=== PATIENT | female | born 1990 | race African-American/Black ===

== ENCOUNTER 2024-05-26 09:46 | Emergency (ER) | payer OTHER, SELFPAY ==
--- NOTE | ~2024-05-26 | XR_ITS ---
XR foot LT min 3V Ordering provider: Erika Esparza NP History: . pain plantar aspect 1st MTP, NKI . Comparison: None. FINDINGS: BONES: No acute fracture or dislocation. JOINT SPACES: Narrowing of the proximal interphalangeal joint. No tarsal coalition. SOFT TISSUES: Normal. IMPRESSION: No acute osseous abnormality left foot. Reviewed, dictated and finalized at location A.
[2024-05-26 09:55] VITALS: BP 113/69; PULSE 69; RESP 16; TEMP 36.7; O2SAT 100
--- NOTE | 2024-05-26 10:37 | ED.LOWEXIN ---
HPI - Extremity Injury (Lower) General Chief Complaint: Extremity Injury, Lower Stated Complaint: Toe Pain Time Seen by Provider: 05/26/24 10:37 Source: patient Mode of arrival: ambulatory Limitations: no limitations History of Present Illness HPI Narrative: 33-year-old female presents with complaint of pain to left foot for 2-3 days. Denies injury. Patient works at [employer], is on her feet for long period time. Reports pain to 1st MTP and 1st great toe. No swelling, erythema or warmth. Distal neurovascularly intact. All systems reviewed and negative except as noted above. Related Data Allergies Allergy/AdvReac Type Severity Reaction Status Date / Time No Known Allergies Allergy Verified 05/26/24 10:29 Review of Systems Review of Systems: CONSTITUTIONAL: Denies fever, chills, or sweats. EYES: Denies visual changes, redness, or discharge. ENT: Denies rhinorrhea, congestion, sore throat, or otalgia. CARDIOVASCULAR: Denies chest pain, palpitations, or edema. RESPIRATORY: Denies cough or dyspnea. GASTROINTESTINAL: Denies abdominal pain, nausea, vomiting, or diarrhea. GENITOURINARY: Denies dysuria or hematuria. SKIN: Denies rash or itching. MUSCULOSKELETAL: Reports pain to left foot. NEUROLOGIC: Denies headache, numbness, or weakness. PSYCHIATRIC: Denies anxiety or depression. All other systems reviewed are negative, except as documented in HPI. PMFSH Comments At time of signature, agree with nursing past medical, surgical, social and family history. There is no relevant family history pertinent to the presenting complaint. Exam Narrative: GENERAL: This is a well-nourished, well-developed patient, in no apparent distress. HEAD: normocephalic, atraumatic. EYES: PERRL. Sclera clear/white. Vision is grossly intact. EARS: External ears normal NOSE: External nose normal NECK: Neck supple, non-tender without lymphadenopathy, masses or thyromegaly. CARDIOVASCULAR: Regular rate and rhythm without murmurs, gallops, or rubs. RESPIRATORY: Clear to auscultation. Breath sounds equal bilaterally. No wheezes, rales, or rhonchi. SKIN: warm, Dry, intact with no suspicious lesions or rash, good texture and turgor. NEURO: awake, alert, and oriented to person, place and time. There were no obvious focal neurologic abnormalities. EXTREMITIES: No significant tenderness to 1st left MTP or left great toe. No erythema, warmth or swelling noted. No deformity. Course Course Level of Care: Express Care Visit Vital Signs Vital signs: Vital Signs Temperature 36.7 C 05/26/24 09:55 Pulse Rate 69 05/26/24 09:55 Respiratory Rate 16 05/26/24 09:55 Blood Pressure 113/69 05/26/24 09:55 Pulse Oximetry 100 05/26/24 09:55 Oxygen Delivery Room Air 05/26/24 09:55 Temperature 36.7 C 05/26/24 09:55 Pulse Rate 69 05/26/24 09:55 Respiratory Rate 16 05/26/24 09:55 Blood Pressure 113/69 05/26/24 09:55 Pulse Oximetry 100 05/26/24 09:55 Oxygen Delivery Room Air 05/26/24 09:55 Reviewed MDM - Extremity Injury (Lower) MDM Narrative Medical decision making narrative: Patient is aware of diagnosis, understands and agrees to treatment plan. Anticipatory guidance given. Patient agrees to follow-up as directed and is aware of reasons to seek care at the emergency department. Portions of this record may have been created with voice recognition software Imaging Data My impression: agree with radiologist Radiologist's impression: XR foot LT min 3V Ordering provider: Erika Esparza NP History: . pain plantar aspect 1st MTP, NKI . Comparison: None. FINDINGS: BONES: No acute fracture or dislocation. JOINT SPACES: Narrowing of the proximal interphalangeal joint. No tarsal coalition. SOFT TISSUES: Normal. IMPRESSION: No acute osseous abnormality left foot. Discharge Plan Discharge Clinical Impression: Acute pain of left foot Patient Disposition: [facility]
== END 2024-05-26 11:20 | disposition home or self-care (01) ==
PROVIDERS: Emergency Provider Nurse Practitioner Family; PCP Nurse Practitioner Family
DX: M79.672 Pain in left foot (principal)
CPT/HCPCS: 73630; 99213; G0463

== ENCOUNTER 2024-10-06 08:28 | Emergency (ER) | payer OTHER, SELFPAY ==
--- NOTE | ~2024-10-06 | XR_ITS ---
HISTORY: FALL, LAT HIP PAIN/BRUISING COMPARISON: None TECHNIQUE: 2 views of the left hip FINDINGS: No acute fracture or dislocation is identified. Superior lateral sclerosis of the femoral acetabular joint space is present consistent with osteoarth ritis. Specimen Fecal stasis within the colon. Air within the rectum. Normal mineralization. IMPRESSION: Degenerative disease without acute fracture or dislocation Reviewed, dictated and finalized at location A. OMY PROFESSOR
--- NOTE | ~2024-10-06 | XR_ITS ---
HISTORY: FALL, ANT PAIN COMPARISON: None TECHNIQUE: 4 views of the right knee were performed FINDINGS: No acute or subacute fracture, erosion, lytic or sclerotic lesion. Medial tibiofemoral joint space narrowing is identified. Small suprapatellar joint effusion is identified. The infrapatellar joint space is clear. IMPRESSION: Degenerative disease and a small suprapatellar joint effusion without acute fracture. Reviewed, dictated and finalized at location A. D CARE TECHNICIAN IMPRESSION: Degenerative disease and a small suprapatellar joint effusion with out acute fracture.
[2024-10-06 08:38] VITALS: BP 122/71; PULSE 68; RESP 16; TEMP 36.3; O2SAT 100
--- OUTSIDE RECORDS SUMMARY | 2024-10-06 08:45 | XMS_ITS | Data Portability ---
Author Organization [facility] Address [address] [place] [address] Care Team Providers Care Computer Education Teacher Name Role Phone ELI, BENITA Primary Care Provider [phone] Assessment Encounter Date Assessment Date Assessment LastModified by Organization Details LastModified Time 08/20/2023 08/20/2023 Ms. Mathews presented in office today complaining of migraine headache everyday x 2 weeks. Patient claims she has tried several migraine medications and none of them have helped. Not available 08/20/2023 15:36:15 12/02/2023 12/02/2023 Ms. Mathews came into the office today complaining of coughing, chest congestion, sore throat, runny nose, bodily aches, and right side sciatic back discomfort for three days. Not available 12/02/2023 12:41:23 Plan of Treatment Reminders Order Date Submit Date Provider Last Modified By Organization Details Last Modified Time Details Appointments None recorded. Lab urinalysi s, dipstick 2023 024 [email or web address] In-Office Order, Internal Use Only DO Not Attach Compendium DO Not Attach Compendium, Do Not Delete/merge, [id number] 4 15:16:40 culture, urine 2023 024 [facility], [address], [address], [place], [address], 4 15:08:54 vaginal pathogens panel, PABLO+probe , vaginal fluid 2023 024 [facility], [address] [facility], [facility], [place], [address], 4 06:19:19 vaginal pathogens panel, PABLO+probe , vaginal fluid 2023 024 [facility], [address], [address], [place], [address], 4 08:25:53 chlamydia trachomat is + neisseria gonorrhoe ae rRNA panel, PABLO+probe , nasophary nx 2023 024 [facility], [address], [address], [place], [address], 4 07:14:57 HIV 1 + 2, meaningfu l use set 2023 024 [facility], [address], [address], [place], [address], 4 07:14:17 HBsAg (hepatiti s B surface Ag), EIA, serum 2023 024 [facility], [address], [address], [place], [address], 4 07:14:15 RPR (rapid plasma reagin), serum 2023 024 [facility], [address], [address], [place], [address], 4 07:14:16 Hepatitis C IgG Ab, qual, serum 2023 024 [facility], [address], [address], [place], [address], 4 07:14:13 chlamydia trachomat is + neisseria gonorrhoe ae + trichomon as vaginalis DNA panel, PABLO+probe , unspecifi ed specimen 2023 024 [facility], [address], [address], [place], [address], 4 07:14:14 rapid strep group A, throat 2023 In-Office Order, Internal Use Only DO Not Attach Compendium DO Not Attach Compendium, Do Not Delete/merge, [id number] 4 11:31:05 rapid SARS CoV 2 Ag, QL IA, respirato ry specimen 2023 [facility] In-Office Order, Internal Use Only DO Not Attach Compendium DO Not Attach Compendium, Do Not Delete/merge, [id number] 4 11:41:53 rapid flu (A+B) 2023 024 [facility] In-Office Order, Internal Use Only DO Not Attach Compendium DO Not Attach Compendium, Do Not Delete/merge, [id number] 4 11:41:[address] referral 2023 buffy Burton MD, [address], [address], 4 10:27:26 Procedures None recorded. Surgeries None recorded. Imaging None recorded. Medication Orders Macrobid 100 mg capsule 2023 [facility]75304, [address], [place], [place], [id number], 4 15:16:45 Pyridium 100 mg tablet 2023 [facility] #90858, [address], [place], [place], [id number], 4 15:17:35 albuterol sulfate HFA 90 mcg/actua tion aerosol inhaler 2023 024 [facility] #77739, [address], [place], [place], [id number], 4 11:34:18 Medrol (Eloy) 4 mg tablets in a dose pack 2023 024 [facility] #96928, [address] [place], [place], [id number], 4 17:00:34 cyclobenz aprine 10 mg tablet 2023 024 [facility] #01581, [address] [place] [address], [place], [id number], 4 17:00:38 ibuprofen 600 mg tablet 2023 024 [facility] #42078, [address] [place] [address], [place], [id number], 4 17:00:36 benzonata te 100 mg capsule 2023 024 [facility] #00012, [address] [place] [address], [place], [id number], 4 17:00:40 Ubrelvy 50 mg tablet 2023 [email or web address], [address] [place] [address], [place], [id number], 4 11:44:00 Patient TargetsNo targets recorded. Patient Instructions Encounter Date Encounter Id Patient Instructions Last Modified By Organization Details Last Modified Time 08/20/2023 [id number] - Always present to ER or Urgent Care with any progression of/alarming symptoms, significant changes in symptoms or any concerning or urgent matters Not available 08/20/2023 15:33:18 12/02/2023 [id number] - Always present to ER or Urgent Care with any progression of/alarming symptoms, significant changes in symptoms or any concerning or urgent matters Not available 12/02/2023 11:31:19 02/09/2024 [id number] safer sex: care instructions [email or web address] Not available 02/09/2024 15:57:32 Plan of care has been discussed with patient including expected therapeutic benefits and potential side effects of prescribed medication and treatments. Patient verbalizes understanding and is in agreement with the plan of care. Patient was instructed to keep all scheduled appointments and contact the clinic for any additional problems. [email or web address] Not available 03/14/2024 16:22:25 03/09/2024 [id number] Urinary Tract Infection (UTI) in Women: Care Instructions [email or web address] Not available 03/09/2024 15:19:16 Plan of care has been discussed with patient including expected therapeutic benefits and potential side effects of prescribed medication and treatments. Patient verbalizes understanding and is in agreement with the plan of care. Patient was instructed to keep all scheduled appointments and contact the clinic for any additional problems. Not available 03/16/2024 06:34:43 Reason for Referral Neurologist Referral for Will coon Referring Physician: Benita Benitez, Family Medicine, Encounter Date: 08/20/2023 Results Created Date Observation Date Name Description Value Unit Range Abnormal Flag Note LastModifiedBy Organization Detail LastModifiedTime 12/02/19 24 12/02/2023 rapid SARS CoV 2 Ag, QL IA, respi rator y speci men rapid SARS CoV 2 Ag, QL IA, respiratory specimen negati ve Not Available In-Office Order Internal Use Only DO Not Attach Compendium DO Not Attach Compendium, Do Not Delete/merge, [id number] 12/02/2023 11:10:26 12/02/19 24 12/02/2023 rapid flu (A+B) Flu A negati ve Not Available In-Office Order Internal Use Only DO Not Attach Compendium DO Not Attach Compendium, Do Not Delete/merge, [id number] 12/02/2023 11:10:27 12/02/19 24 12/02/2023 rapid flu (A+B) Flu B negati ve Not Available In-Office Order Internal Use Only DO Not Attach Compendium DO Not Attach Compendium, Do Not Delete/merge, [id number] 12/02/2023 11:10:27 12/02/19 24 12/02/2023 rapid strep group A, throa t Strep negati ve Not Available In-Office Order Internal Use Only DO Not Attach Compendium DO Not Attach Compendium, Do Not Delete/merge, [id number] 12/02/2023 11:10:04 12/24/19 24 12/25/2023 HCV ANTIB DANNY hep C virus Ab NON REACTI VE nonrea ctive HCV antib danny alone does not diffe renti ate betwe en previ ously resol estrellita infec tion and activ e infec tion. Equiv ocal and React mary HCV antib danny resul ts shoul d be follo wed up with an HCV RNA test to suppo rt the diagn osis of activ e HCV infec tion. Not Available [facility] ([facility]) [address] [place], [address], 12/26/2023 07:14:13 12/24/19 24 12/26/2023 CT, NG, TRICH VAG BY PABLO chlamydia by PABLO NEGATI VE negati ve Not Available [facility] ([facility]) [address] [place], [address], 12/26/2023 07:14:14 12/24/19 24 12/26/2023 CT, NG, TRICH VAG BY PABLO gonococcus by PABLO NEGATI VE negati ve Not Available [facility] ([facility]) [address] [place], [address], 12/26/2023 07:14:14 12/24/19 24 12/26/2023 CT, NG, TRICH VAG BY PABLO trich vag by PABLO NEGATI VE negati ve Not Available [facility] ([facility]) [address] [place], [address], 12/26/2023 07:14:14 12/24/1912/25/2023 HBSAG SCREE N HBsAg screen NEGATI VE negati ve Not Available [facility] ([facility]) [address] [place], [address], 12/26/2023 07:14:15 12/24/19 24 12/25/2023 RPR, RFX QN RPR/C ONFIR M TP RPR NON REACTI VE nonrea ctive Not Available [facility] ([facility]) [address] [place], [address], 12/26/2023 07:14:16 12/24/19 24 12/25/2023 HIV AB/P2 4 AG WITH REFLE X HIV Ab/P24 Ag screen NON REACTI VE nonrea ctive HIV Negat mary HIV-1 /HIV- 2 antib odies and HIV-1 p24 antig en were NOT detec carroll. There is no labor atory evide nce of HIV infec tion. Not Available [facility] ([facility]) [address] [facility], [place], [address], 12/26/2023 07:14:17 02/09/20 24 02/11/2024 CT/GC PABLO, PHARY NGEAL C. trachomatis, PABLO, pharyn NEGATI VE negati ve Not Available [facility] ([facility]) [address] [place], [address], 02/11/2024 07:14:57 02/09/20 24 02/11/2024 CT/GC PABLO, PHARY NGEAL N. gonorrhoeae, PABLO, pharyn NEGATI VE negati ve Not Available [facility] ([facility]) [address] [place], [address], 02/11/2024 07:14:57 02/09/20 24 02/10/2024 NUSWA B VAGIN ITIS PLUS (VG+) atopobium vaginae HIGH - 2 score abnormal Not Available [facility] ([facility]) [address] [place], [address], 02/11/2024 08:25:52 02/09/20 24 02/10/2024 NUSWA B VAGIN ITIS PLUS (VG+) bvab 2 HIGH - 2 score abnormal Not Available [facility] ([facility]) [address] [place], [address], 02/11/2024 08:25:52 02/09/20 24 02/10/2024 NUSWA B VAGIN ITIS PLUS (VG+) megasphaera 1 HIGH - 2 score abnormal Calcu late total score by ken almonte the 3 indiv idual bacte rial vagin osis (BV) marke r score s toget her. Total score is inter prete d as follo ws: Total score 0-1: Indic ates the absen ce of BV. Total score 2: Indet ermin ate for BV. Addit ional clini angelia data shoul d be evalu ated to estab pj a diagn osis. Total score 3-6: Indic ates the prese nce of BV. Not Available [facility] ([facility]) [address] [place], [address], 02/11/2024 08:25:52 02/09/20 24 02/10/2024 NUSWA B VAGIN ITIS PLUS (VG+) monae albicans, PABLO NEGATI VE negati ve Not Available [facility] ([facility]) [address] [place], [address], 02/11/2024 08:25:52 02/09/20 24 02/10/2024 NUSWA B VAGIN ITIS PLUS (VG+) monae glabrata, PABLO NEGATI VE negati ve Not Available [facility] ([facility]) [address] [place], [address], 02/11/2024 08:25:52 02/09/20 24 02/11/2024 NUSWA B VAGIN ITIS PLUS (VG+) trich vag by PABLO NEGATI VE negati ve Not Available [facility] ([facility]) [address] [place], [address], 02/11/2024 08:25:52 02/09/20 24 02/11/2024 NUSWA B VAGIN ITIS PLUS (VG+) chlamydia trachomatis, PABLO NEGATI VE negati ve Not Available [facility] ([facility]) [address] [facility], [place], [address], 02/11/2024 08:25:52 02/09/20 24 02/11/2024 NUSWA B VAGIN ITIS PLUS (VG+) neisseria gonorrhoeae, PABLO NEGATI VE negati ve Not Available [facility] ([facility]) [address] [facility], [place], [address], 02/11/2024 08:25:52 03/09/20 24 03/13/2024 URINE CULTU RE, ROUTI NE urine culture, routine FINAL REPORT abnormal Not Available [facility] ([facility]) [address] [facility], [place], [address], 03/13/2024 15:08:54 03/09/20 24 03/13/2024 URINE CULTU RE, ROUTI NE result 1 ESCHER ICHIA COLI abnormal Cefaz maureen <=4 ug/mL Cefaz maureen with an VON <=16 predi cts susce ptibi lity to the oral agent s cefac sujey, cefdi kush, cefpo doxim e, cefpr ozil, cefur oxime , cepha lexin , and lorac arbef when used for thera py of uncom plica carroll urina ry tract infec tions due to E. coli, Klebs iella pneum oniae , and Prote us mirab ilis. Great er than 100,0 00 colon y formi ng units per mL Not Available [facility] ([facility]) [address] [facility], [place], [address], 03/13/2024 15:08:54 03/09/20 24 03/13/2024 URINE CULTU RE, ROUTI NE antimicrobia l susceptibili ty COMMEN T S = Susce ptibl e; I = Inter media te; R = Resis tant P = Posit mary; N = Negat mary MICS are expre ssed in micro grams per mL Antib iotic RSLT# 1 RSLT# 2 RSLT# 3 RSLT# 4 Amoxi cilli n/Cla vulan ic Acid S Ampic illin S Cefep precious S Ceftr iaxon e S Cefur oxime S Cipro floxa mirna S Ertap enem S Genta micin S Imipe nem S Levof loxac in S Merop enem S Nitro furan toin S Piper acill in/Ta zobac patel S Tetra cycli ne S Tobra mycin S Trime thopr im/Hwang lfa R Not Available [facility] ([facility]) [address], [place], [address], 03/13/2024 15:08:54 03/09/20 24 03/09/2024 urina lysis , dipst ick Leukocytes Modera te Not Available In-Office Order Internal Use Only DO Not Attach Compendium DO Not Attach Compendium, Do Not Delete/merge, 03/09/2024 14:53:01 03/09/20 24 03/09/2024 urina lysis , dipst ick Nitrite positi ve Not Available In-Office Order Internal Use Only DO Not Attach Compendium DO Not Attach Compendium, Do Not Delete/merge, 03/09/2024 14:53:01 03/09/20 24 03/09/2024 urina lysis , dipst ick Urobilinogen 1 Not Available In-Of fice Order Internal Use Only DO Not Attach Compendium DO Not Attach Compendium, Do Not Delete/merge, 03/09/2024 14:53:01 03/09/20 24 03/09/2024 urina lysis , dipst ick Protein 100 Not Available In-Office Order Internal Use Only DO Not Attach Compendium DO Not Attach Compendium, Do Not Delete/merge, 03/09/2024 14:53:01 03/09/20 24 03/09/2024 urina lysis , dipst ick pH 7.0 Not Available In-Office Order Internal Use Only DO Not Attach Compendium DO Not Attach Compendium, Do Not Delete/merge, 03/09/2024 14:53:01 03/09/20 24 03/09/2024 urina lysis , dipst ick Blood Modera te Not Available In-Office Order Internal Use Only DO Not Attach Compendium DO Not Attach Compendium, Do Not Delete/merge, 03/09/2024 14:53:01 03/09/20 24 03/09/2024 urina lysis , dipst ick Specific [place] 1.015 Not Available In-Off ice Order Internal Use Only DO Not Attach Compendium DO Not Attach Compendium, Do Not Delete/merge, 03/09/2024 14:53:01 03/09/20 24 03/09/2024 urina lysis , dipst ick Ketone Trace Not Available In-Office Order Internal Use Only DO Not Attach Compendium DO Not Attach Compendium, Do Not Delete/merge, 03/09/2024 14:53:01 03/09/20 24 03/09/2024 urina lysis , dipst ick Bilirubin Negati ve Not Available In-Office Order Internal Use Only DO Not Attach Compendium DO Not Attach Compendium, Do Not Delete/merge, 03/09/2024 14:53:01 03/09/20 24 03/09/2024 urina lysis , dipst ick Glucose Negati ve Not Available In-Office Order Internal Use Only DO Not Attach Compendium DO Not Attach Compendium, Do Not Delete/merge, 03/09/2024 14:53:01 03/09/20 24 03/09/2024 urina lysis , dipst ick Appearance Cloudy Not Available In-Offi ce Order Internal Use Only DO Not Attach Compendium DO Not Attach Compendium, Do Not Delete/merge, 03/09/2024 14:53:01 03/09/20 24 03/09/2024 urina lysis , dipst ick Color Dark Yellow Not Available In-Office Order Internal Use Only DO Not Attach Compendium DO Not Attach Compendium, Do Not Delete/merge, 03/09/2024 14:53:01 03/10/20 24 03/11/2024 NUSWA B VAGIN ITIS PLUS (VG+) atopobium vaginae HIGH - 2 score abnormal Not Available [facility] ([facility]) [address] [facility], [place], [address], 03/12/2024 06:19:19 03/10/20 24 03/11/2024 NUSWA B VAGIN ITIS PLUS (VG+) bvab 2 HIGH - 2 score abnormal Not Available [facility] ([facility]) [address] [facility], [place], [address], 03/12/2024 06:19:19 03/10/20 24 03/11/2024 NUA B VAGIN ITIS PLUS (VG+) megasphaera 1 LOW - 0 score Calcu late total score by addin g the 3 indiv idual bacte rial vagin osis (BV) marke r score s toget her. Total score is inter prete d as follo ws: Total score 0-1: Indic ates the absen ce of BV. Total score 2: Indet ermin ate for BV. Addit ional clini angelia data shoul d be evalu ated to estab pj a diagn osis. Total score 3-6: Indic ates the prese nce of BV. Not Available [facility] ([facility]) [address] [facility], [place], [address], 03/12/2024 06:19:19 03/10/20 24 03/11/2024 NUA B VAGIN ITIS PLUS (VG+) monae albicans, PABLO NEGATI VE negati ve Not Available [facility] ([facility]) [address] [place], [address], 03/12/2024 06:19:19 03/10/20 24 03/11/2024 NUA B VAGIN ITIS PLUS (VG+) monae glabrata, PABLO NEGATI VE negati ve Not Available [facility] ([facility]) [address] [place], [address], 03/12/2024 06:19:19 03/10/20 24 03/12/2024 NUA B VAGIN ITIS PLUS (VG+) trich vag by PABLO NEGATI VE negati ve Not Available [facility] ([facility]) [address] [place], [address], 03/12/2024 06:19:19 03/10/20 24 03/12/2024 NUSWA B VAGIN ITIS PLUS (VG+) chlamydia trachomatis, PABLO NEGATI VE negati ve Not Available [facility] ([facility]) [address] [facility], [place], [address], 03/12/2024 06:19:19 03/10/20 24 03/12/2024 NUSWA B VAGIN ITIS PLUS (VG+) neisseria gonorrhoeae, PABLO NEGATI VE negati ve Not Available [facility] ([facility]) [address] [facility], [place], [address], 03/12/2024 06:19:19 05/26/20 24 05/26/2024 XR, foot No observ ation record ed. [email or web address] [address], [place], [address], 06/03/2024 16:25:06 Result Notes None recorded. Problems Name Problem SNOMED Code Status Onset Date Resolution Date Notes Provider Name and Address Organization Details Recorded Time Abdominal pain 74114167 Active 2021 BENITA BENITEZ NP Attn: Margarita almonte,[address] [facility], [place], [address], [place] [facility] 2 14:21:05 Migraine with aura 8464190 Active 2021 BENITA BENITEZ NP Attn: Margarita almonte,[address] [facility], [place], [address], [place] [facility] 4 15:31:17 Asthma 185067773 Active BENITA BENITEZ NP Attn: Margarita almonte,[address] [facility], [place], [address], [place] [facility] 4 15:31:17 Anemia 833072615 Active Isatu Burgos [place] null, [place] [facility] 1 11:11:35 Chronic constipatio n 893527400 Active EDDY Uribe, [place] [facility] 1 11:11:35 Backache 039601287 Active Isatu Burgos [place], [place] [facility] 1 11:11:35 Right side sciatica 1240870017820 01 Active 2022 BENITA BENITEZ NP Attn: Accountin g,[address] [facility], [place], [address], [place] [facility] 3 09:10:37 Irritable bowel syndrome characteriz ed by constipatio n 314084871 Active 2022 BENITA BENITEZ NP Attn: Accountin g,[address] 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 Procedures Surgical History Date Name Laterality Status Provider Name and Address Organization Details Recorded Time 3 Colposcopy completed Mike Veras MD Attn: Accounting,[address] [facility], [place], [address], [place] [facility] 04/23/2023 15:01:36 3 Date of Last Pap Smear completed Keke Bedoya [place] [facility] 10/13/2023 08:39:10 1 Colonoscopy with biopsy completed Valentina Estrada RMA [place] [facility] 08/22/2021 17:03:23 1 Colposcopy completed Mike Veras MD Attn: Accounting,[address] [facility], [place], [address], [place] [facility] 10/25/2020 13:18:58 9 Depo Injection completed Mike Veras MD Attn: Accounting,[address] [facility], [place], [address], [place] [facility] 06/21/2019 16:40:24 9 Depo Injection completed Mike Veras MD Attn: Accounting,[address] [facility], [place], [address], [place] [facility] 10/02/2018 15:14:01 7 Colposcopy completed OSMANI Mora Attn: Accounting,[address] [facility], [place], [address], [place] 04/23/2017 12:27:30 Colposcopy completed Marilee Desai [place] [facility] 04/23/2017 11:54:57 Tubal Ligation completed Trena Carrion [place] [facility] 10/13/2014 10:28:32 Imaging Results Imaging Date Name Status LastModified by Organiz ation Details LastModified Time 05/26/2024 XR, foot completed baldemarga Doug [facility] [address], [place], [address], 06/03/2024 16:25:06 Procedure Notes None recorded. Medical Equipment None Reported. Allergies Allergen ID Allergen Name Allergen Category Reaction Reaction Severity Criticality Documentation Date Start Date Code Code System Note Provider Name and Address Organization Details Recorded Time 456385 metronida zole medicatio n Not available Not available Not available 04/25/2023 6922 RxNorm Not Available Not Available Not Available Medications Name Sig Start Date Stop Date Status Note LastModified by Organization Details LastModified Time cyclobenzap rine 10 mg tablet TAKE 1 TABLET BY MOUTH THREE TIMES DAILY FOR 10 DAYS NEEDED 12/23 completed Not Available Not Available Not Available amoxicillin 500 mg capsule TAKE 1 CAPSULE BY MOUTH THREE TIMES A DAY FOR 7 DAYS 03/26 completed Not Available Not Available Not Available butalbital- acetaminoph en-caffeine 50 mg-325 mg-40 mg capsule 02/15 completed Not Available Not Available Not Available promethazin e-DM 6.25 mg-15 mg/5 mL oral syrup 02/13 completed Not Available Not Available Not Available naproxen 375 mg tablet TAKE ONE TABLET BY MOUTH TWICE DAILY WITH MEALS NEEDED FOR PAIN 02/13 completed Not Available Not Available Not Available polyethylen e glycol 3350 17 gram oral powder packet active Not Available Not Available Not Available azithromyci n 250 mg tablet 04/09 completed Not Available Not Available Not Available ibuprofen 800 mg tablet TAKE 1 TABLET BY MOUTH THREE TIMES DAILY FOR 10 DAYS 08/20 completed Not Available Not Available Not Available fluconazole 150 mg tablet TAKE 1 TABLET BY MOUTH ONCE FOR 1 DOSE STARTING AFTER FINISHING ANTIBIOTI C active Not Available Not Available No t Available hydrocodone 5 mg-acetamin ophen 325 mg tablet 02/15 completed Not Available Not Available Not Available fluconazole 200 mg tablet TAKE 1 TABLET BY MOUTH EVERY DAY 12/01 completed Not Available Not Available Not Available metronidazo le 0.75 % (37.5 mg/5 gram) vaginal gel INSERT 1 APPLICATO RFUL VAGINALLY EVERY DAY AT BEDTIME FOR 5 DAYS 06/27 completed Not Available Not Available Not Available ondansetron HCl 4 mg tablet 04/15 completed Not Available Not Available Not Available prednisone 20 mg tablet TAKE 1 TABLET BY MOUTH TWICE A DAY FOR 5 DAYS 03/26 completed Not Available Not Available Not Available ceftriaxone 250 mg solution for injection Take 250 mg by injection route. 02/15 completed Not Available Not Available Not Available rizatriptan 10 mg tablet TAKE 1 TABLET BY MOUTH EVERY DAY NEEDED 12/01 completed Not Available Not Available Not Available Pyridium 100 mg tablet Take by oral route for 2 days. 2023 active Not Available Not Available Not Avai lable clindamycin HCl 150 mg capsule 02/15 completed Not Available Not Available Not Available sumatriptan 50 mg tablet take as directed no more than 200 mg in a 24 hour period 02/13 completed Not Available Not Available Not Available penicillin V potassium 500 mg tablet 09/11 completed Not Available Not Available Not Available topiramate 25 mg tablet Take 1 tablet every day by oral route. 04/23 completed Not Available Not Available Not Available metronidazo le 500 mg tablet TAKE 1 TABLET BY MOUTH TWICE DAILY active Not Available Not Available No t Available acetaminoph en 300 mg-codeine 30 mg tablet 02/13 completed Not Available Not Available Not Available ciprofloxac in 500 mg tablet active Not Available Not Available Not Available sulfamethox azole 800 mg-trimetho prim 160 mg tablet TAKE 1 TABLET BY MOUTH TWICE DAILY active Not Available Not Available No t Available tramadol 50 mg tablet TAKE 1 TABLET BY MOUTH EVERY 8 HOURS NEEDED FOR MODERATE OR MORE SEVERE PAIN 06/27 completed Not Available Not Available Not Available butalbital- acetaminoph en-caffeine 50 mg-325 mg-40 mg tablet 02/15 completed Not Available Not Available Not Available ketorolac 10 mg tablet 04/14 completed Not Available Not Available Not Available amoxicillin 875 mg tablet TAKE 1 TABLET BY MOUTH TWICE A DAY FOR 10 DAYS 09/11 completed Not Available Not Available Not Available famotidine 20 mg tablet 04/23 completed Not Available Not Available Not Available dicyclomine 20 mg tablet 04/23 completed Not Available Not Available Not Available benzonatate 100 mg capsule TAKE 1 CAPSULE BY MOUTH THREE TIMES DAILY FOR 10 DAYS 12/23 completed Not Available Not Available Not Available cephalexin 500 mg capsule TAKE 1 CAPSULE BY MOUTH EVERY 8 HOURS FOR 7 DAYS 09/11 completed Not Available Not Available Not Available pantoprazol e 40 mg tablet,codi yed release TAKE ONE PILL DAILY NEEDED FOR HEARTBURN AND REFLUX ISSUES. 06/27 completed Not Available Not Available Not Available lidocaine 5 % topical patch 06/27 completed Not Available Not Available Not Available diclofenac potassium 50 mg tablet TAKE 1 TABLET BY MOUTH TWICE DAILY 06/27 completed Not Available Not Available Not Available simethicone 125 mg chewable tablet TAKE 1 TABLET (125 MG TOTAL) BY MOUTH 3 (THREE) TIMES A DAY 06/27 completed Not Available Not Available Not Available clindamycin 2 % vaginal cream Insert 1 applicato rful every day by vaginal route for 7 days. active Not Available Not Available No t Available ceftriaxone 500 mg solution for injection Take 500 mg by injection route. 03/26 completed Not Available Not Available Not Available Cheratussin AC 10 mg-100 mg/5 mL oral liquid Take 10 mL every 4 hours by oral route as needed. 04/09 completed Not Available Not Available Not Available ibuprofen 600 mg tablet TAKE 1 TABLET BY MOUTH THREE TIMES DAILY FOR 10 DAYS 12/23 completed Not Available Not Available Not Available polyethylen e glycol 3350 17 gram/dose oral powder 12/03 completed Not Available Not Available Not Available methylpredn isolone 4 mg tablets in a dose pack FOLLOW PACKAGE DIRECTION S 12/23 completed Not Available Not Available Not Available albuterol sulfate HFA 90 mcg/actuati on aerosol inhaler INHALE 2 PUFFS BY MOUTH EVERY 4 HOURS NEEDED active Not Available Not Available No t Available fluticasone propionate 50 mcg/actuati on nasal spray,suspe nsion [place] 2 sprays every day by intranasa l route. 04/15 completed Not Available Not Available Not Available medroxyprog esterone 150 mg/mL intramuscul ar suspension INJECT 1 ML EVERY 3 MONTHS BY INTRAMUSC ULAR ROUTE. 02/13 completed Not Available Not Available Not Available doxycycline hyclate 100 mg tablet TAKE 1 TABLET BY MOUTH TWICE A DAY FOR 10 DAYS 04/01 completed Not Available Not Available Not Available loratadine 10 mg tablet Take 1 tablet every day by oral route. 04/15 completed Not Available Not Available Not Available naproxen 500 mg tablet Take 1 tablet twice a day by oral route as needed. 04/15 completed Not Available Not Available Not Available metoclopram cordell 10 mg tablet 04/15 completed Not Available Not Available Not Available azithromyci n 500 mg tablet TAKE 1 TABLET BY MOUTH EVERY NIGHT AT BEDTIME FOR 3 DAYS 12/01 completed Not Available Not Available Not Available medroxyprog esterone 150 mg/mL intramuscul ar syringe INJECT 1 ML EVERY 3 MONTHS BY INTRAMUSC ULAR ROUTE. active Not Available Not Available No t Available Sprintec (28) 0.25 mg-35 mcg tablet take active pill daily for 20 days 02/13 completed Not Available Not Available Not Available Flexeril 5 mg tablet Take 1 tablet 3 times a day by oral route. 04/15 completed Not Available Not Available Not Available Loaiza Milk of Magnesia 400 mg/5 mL oral suspension Take 30 mL every day by oral route as needed. 06/11 completed Not Available Not Available Not Available Dulcolax Stool Softener (docusate) 100 mg capsule Take 1 capsule every day by oral route. 06/11 completed Not Available Not Available Not Available nitrofurant oin monohydrate /macrocryst als 100 mg capsule TAKE 1 CAPSULE BY MOUTH EVERY 12 HOURS FOR 5 DAYS active Not Available Not Available No t Available lactulose 10 gram/15 mL oral solution TAKE 20 ML BY MOUTH THREE TIMES DAILY 12/01 completed Not Available Not Available Not Available ferrous gluconate 325 mg (36 mg iron) tablet Take 1 tablet 3 times a day by oral route. 2014 active Not Available Not Available Not Avai lable Mucinex 1,200 mg tablet, extended release Take 1 tablet twice a day by oral route as directed. 04/15 completed Not Available Not Available Not Available Senexon-S 8.6 mg-50 mg tablet TAKE 1 TABLET BY MOUTH TWICE A DAY 04/23 completed Not Available Not Available Not Available butalbital- acetaminoph en-caffeine 50 mg-300 mg-40 mg capsule TAKE ONE CAPSULE BY MOUTH EVERY 4-6 HOURS BY MOUTH NEEDED 05/05 completed Not Available Not Available Not Available Nelli Mccord C spacer 06/27 completed Not Available Not Available Not Available Linzess 145 mcg capsule 06/27 completed Not Available Not Available Not Available Ubrelvy 50 mg tablet Take by oral route for 10 days. 08/26 completed Not Available Not Available Not Available Vitals Date Recorded Body height Respiratory rate Body mass index (BMI) Body weight Body temperature Heart rate Oxygen saturation Oxygen saturation in Arterial blood by Pulse oximetry Systolic blood pressure Diastolic blood pressure Provider Name and Address Organization Details Last Updated DateTime 4 170.18 cm 16 /min 22 kg/m2 45659.3 3 g 97.1 [degF] 70 /min 97 % 97 % 122 mm[Hg] 79 mm[Hg] Smita Wilson EDDY [facility] 4 15:02:51 Date Recorded Body height Respiratory rate Body mass index (BMI) Body weight Body temperature Heart rate Oxygen saturation Oxygen saturation in Arterial blood by Pulse oximetry Systolic blood pressure Diastolic blood pressure Provider Name and Address Organization Details Last Updated DateTime 4 170.18 cm 16 /min 22.2 kg/m2 58682.9 7 g 96.9 [degF] 89 /min 97 % 97 % 117 mm[Hg] 79 mm[Hg] Smita Wilson EDDY [facility] 4 10:55:03 Date Recorded Body height Body mass index (BMI) Body weight Systolic blood pressure Diastolic blood pressure Provider Name and Address Organization Details Last Updated DateTime 12/24/2023 170.18 cm 22.6 kg/m2 77036.3 g 129 mm[Hg] 85 mm[Hg] SIRENA Manzo [facility] 4 16:57:49 Date Recorded Body height Body mass index (BMI) Body weight Respiratory rate Body temperature Oxygen saturation Oxygen saturation in Arterial blood by Pulse oximetry Heart rate Systolic blood pressure Diastolic blood pressure Provider Name and Address Organization Details Last Updated DateTime 4 170.18 cm 22.3 kg/m2 95504.9 2 g 16 /min 98.2 [degF] 98 % 98 % 70 /min 111 mm[Hg] 74 mm[Hg] Maria L Funes MA [facility] 4 15:35:07 Date Recorded Body height Body mass index (BMI) Body weight Oxygen saturation Oxygen saturation in Arterial blood by Pulse oximetry Heart rate Respiratory rate Body temperature Systolic blood pressure Diastolic blood pressure Provider Name and Address Organization Details Last Updated DateTime 4 170.18 cm 22.6 kg/m2 93198.3 5 g 99 % 99 % 79 /min 16 /min 97.5 [degF] 102 mm[Hg] 67 mm[Hg] Trinity Ordonez MA [facility] 4 14:49:58 Social History Question Answer Notes LastModified by Organizat ion Details LastModified Time Tobacco Smoking Status Current Every Day Smoker quit 10/2020-res tarted beg on aug 2023 Maria L Funes MA [facility], [place] - [facility] 02/09/2024 15:32:21 Do You Have An Advance Directive? No Information not available 03/26/2023 What Is Your Level Of Alcohol Consumption? Moderate Wine Once Or Twice A Week [email or web address] Information not available 08/22/2021 How Many Years Have You Consumed Alcohol? 14 Information not available 12/03/2021 Are You Blind Or Do You Have Difficulty Seeing? Yes Glasses Information not available 02/13/2021 Is Blood Transfusion Acceptable In An Emergency? Yes Information not available 03/26/2023 What Is Your Level Of Caffeine Consumption? Heavy Coffee 2xs Per Wk Tea Daily Information not available 02/13/2021 In The 14 Days Before Symptom Onset, Have You Had Close Contact With A Laboratory-confir med COVID-19 While That Case Was Ill? No Information not available 03/26/2023 In The 14 Days Before Symptom Onset, Have You Had Close Contact With A Person Who Is Under Investigation For COVID-19 While That Person Was Ill? No Information not available 03/26/2023 Have You Been To An Area Known To Be High Risk For COVID-19? No Information not available 03/26/2023 Are You Currently Employed? Yes Information not available 02/13/2021 Are You Deaf Or Do You Have Serious Difficulty Hearing? No Information not available 02/13/2021 What Type Of Diet Are You Following? REGULAR Information not available 10/13/2014 Which Illicit Or Recreational Drugs Have You Used? None Information not available 10/13/2014 Do You Or Have You Ever Used E-cigarettes Or Vape? Former User Of Electronic Cigarettes Information not available 02/13/2021 What Is The Highest Grade Or Level Of School You Have Completed Or The Highest Degree You Have Received? [id number] Information not available 03/26/2023 What Is Your Occupation? [employer] Information not available 02/09/2024 Have There Been Any Changes To Your Family Or Social Situation? No Information no t available 03/26/2023 Are There Any Guns Present In Your Home? No [email or web address] Information not available 06/27/2023 Hard Of Hearing Or Deaf In One Or Both Ears? No Information not available 10/13/2014 Legally Blind In One Or Both Eyes? No Information no t available 10/13/2014 Live Alone Or With Others? With Others Information not available 10/13/2014 Do You Have A High School Diploma Or Higher Education? Yes Information not available 02/13/2021 Do You Sometimes Have To Miss Your Medical Appointments Due To Difficult Getting Transportation? No Information not available 02/13/2021 Do You Feel Unfairly Treated Due To Things Such As Race, Age, Gender, Disability Or Some Other Reason? No Information not available 02/13/2021 Do You Feel Physically And Emotionally Safe While Living At Home? Yes Information not available 02/13/2021 Do You Feel Physically And Emotionally Safe In Your Neighborhood Or Other Public Places? Yes Information not available 02/13/2021 What Was The Date Of Your Most Recent Tobacco Screening? 02/09/2024 Information not available 02/09/2024 How Many Children Do You Have? 3 Information not available 10/13/2014 Do You Have Any Pets? No Information not available 03/26/2023 Do You Use Protection During Sex? Always Information not available 10/13/2014 What Is Your Relationship Status? Single Information not available 02/13/2021 Do You Use Your Seat Belt Or Car Seat Routinely? Yes Information not available 03/26/2023 Are You Sexually Active? Yes Information not available 10/13/2014 Do You Have Smoke And Carbon Monoxide Detectors In Your Home? Yes Information not available 02/13/2021 Are You Passively Exposed To Smoke? Yes Information no t available 02/13/2021 Do You Or Have You Ever Used Smokeless Tobacco? Never Used Smokeless Tobacco Information not available 12/03/2021 How Much Tobacco Do You Smoke? 0.5 PPD Information not available 10/13/2014 Do You Feel Stressed (tense, Restless, Nervous, Or Anxious, Or Unable To Sleep At Night)? [id number] Information not available 02/13/2021 Do You Use Any Illicit Or Recreational Drugs? No Denies Information not available 02/13/2021 Do You Use Sunscreen Routinely? No Information not available 03/26/2023 Has Tobacco Cessation Counseling Been Provided? No Information not available 02/13/2021 On What Date Was Tobacco Cessation Counseling Provided? 02/09/2024 Information not available 02/09/2024 How Many Years Have You Smoked Tobacco? 14 Since Age 11. [email or web address] Information not available 07/17/2016 Do You Or Have You Ever Used Any Other Forms Of Tobacco Or Nicotine? Yes Information not available 02/13/2021 Sex: Female Functional Status Question Answer Note LastModified by Organization D etails LastModified Time Are you able to care for yourself? Yes Information n ot available 10/13/2014 What is your exercise level? None Information not available 10/13/2014 Mental Status None recorded. Family History Relationship Description Onset Age of this Age Resolved Age Notes LastModified by Organization Details LastModified Time Mother Asthma [email or web address] Not available 14:17:23 Mother Diabetes mellitus [email or web address] Not available 2015 14:17:23 Father Asthma [email or web address] Not available 14:17:23 Father Diabetes mellitus [email or web address] Not available 2015 14:17:23 Father Depressive disorder [email or web address] Not available 2015 14:17:23 Father Hypertensive disorder [email or web address] Not available 2015 14:17:23 Notes:No new reported 4 Medical History Condition Response Muscle, Joint, or Bone Problems Other Y Headaches Y Asthma Y GI Problems Y Allergies Y Gynecological History Statement/Question Response Abnormal Pap Y Flow Light Date of LMP 02/07/2024 STIs/STDs Yes Duration of Flow (days) 4 Age at Menarche 10 Current Control Method Tubal Ligat ion Age at First Child 17 Sexually Active? Y Menses Monthly Y Date of Last Pap Smear 03/26/2023 Sexual Problems? N LMP Definite Obstetrics History GPAL:G 3 P 3 0 0 3 Type Value Full Term 3 Living 3 Total 3 Immunizations Vaccine Type Date Status Note Provider Nam e and Address Organization Details Recorded Time Hib, unspecified formulation 02/09/1991 completed BENITA BENITEZ NP Attn: [facility]ing,[address], [place], [address], [place] [facility] 06/27/2023 09:03:38 MMR 02/09/1991 completed BENITA BENITEZ NP Attn: Accounting,[address], [place], [place], [address] [place] [address], [place] [facility] 06/27/2023 09:03:38 MMR 03/21/1993 completed BENITA BENITEZ NP Attn: Accounting,[address], [place], [place], [address] [place] [address], [place] [facility] 06/27/2023 09:03:38 COVID-19, mRNA, LNP-S, PF, 100 mcg/0.5mL dose or 50 mcg/0.25mL dose 11/29/2020 completed BENITA BENITEZ NP Attn: [facility],[address] [facility], [place], [place], [address] [place] [address], [place] [facility] 06/27/2023 09:03:38 COVID-19, mRNA, LNP-S, PF, 100 mcg/0.5mL dose or 50 mcg/0.25mL dose 12/27/2020 completed BENITA BENITEZ NP Attn: [facility]ing,[address] [facility], [place], [place], [address] [place] [address], [place] [facility] 06/27/2023 09:03:38 DTP 1989 completed BENITA BENITEZ NP Attn: [facility],[address] [facility], [place], [address], [place] [facility] 06/27/2023 09:03:38 DTP 12/11/1993 completed BENITA BENITEZ NP Attn: [facility]ing,[address] [facility], [place], [place], [address] [place] [address], [place] [facility] 06/27/2023 09:03:38 DTP 12/15/1990 completed BENITA BENITEZ NP Attn: Accounting,[address] [facility], [place], [place], [address] [place] [address], [place] [facility] 06/27/2023 09:03:38 DTP 02/14/1992 completed BENITA BENITEZ ENVIRONMENTAL HEALTH SAFETY MANAGER Attn: Accounting,[address], [place], [address], [place] [facility] 06/27/2023 09:03:38 DTP 04/22/1990 completed BENITA BENITEZ ENVIRONMENTAL HEALTH SAFETY MANAGER Attn: Accounting,[address], [place], [address], [place] [facility] 06/27/2023 09:03:38 OPV 1989 completed BENITA BENITEZ, ENVIRONMENTAL HEALTH SAFETY MANAGER Attn: Accounting,[address], [place], [address], [place] [facility] 06/27/2023 09:03:38 OPV 12/11/1993 completed BENITA BENITEZ ENVIRONMENTAL HEALTH SAFETY MANAGER Attn: Accounting,[address], [place], [address], [place] [facility] 06/27/2023 09:03:38 OPV 12/15/1990 completed BENITA BENITEZ ENVIRONMENTAL HEALTH SAFETY MANAGER Attn: Accounting,[address], [place], [address], [place] [facility] 06/27/2023 09:03:38 OPV 02/14/1992 completed BENITA BENITEZ ENVIRONMENTAL HEALTH SAFETY MANAGER Attn: Accounting[address] , [place], [address], [place] [facility] 06/27/2023 09:03:38 OPV 04/22/1990 completed BENITA BENITEZ ENVIRONMENTAL HEALTH SAFETY MANAGER Attn: Accounting,[address], [place], [address], [place] [facility] 06/27/2023 09:03:38 Hep B, adolescent or pediatric 11/19/2000 completed BENITA BENITEZ ENVIRONMENTAL HEALTH SAFETY MANAGER Attn: Accounting,[address], [place], [address], [place] [facility] 06/27/2023 09:03:39 Hep B, adolescent or pediatric 05/12/2000 completed BENITA BENITEZ ENVIRONMENTAL HEALTH SAFETY MANAGER Attn: Accounting,[address], [place], [address], [place] [facility] 06/27/2023 09:03:39 Hep B, adolescent or pediatric 06/18/2000 completed BENITA BENITEZ NP Attn: [address] [place], [address], [facility] - [facility] 06/27/2023 09:03:39 Influenza, split virus, quadrivalent, PF 06/27/2023 completed BENITA BENITEZ NP Attn: [address] [place], [address], [facility] 06/27/2023 12:16:34 Past Encounters Encounter ID Performer Location Encounter Start Date Encounter Closed Date Diagnosis/Indication Diagnosis SNOMED-CT Code Diagnosis ICD10 Code Diagnosis Note [id number] EDDY David ([facility] 205) [address] [facility] [place] [address] 10/13/2014 09:56:10 10/13/2014 13:42:53 Adult health examination [id number] Laboratory test 08916340 Asthma 780243411 Anemia 746938548 Chronic constipation 068023141 Backache 746907123 [id number] TL Alexander ([facility] 205) [address] [facility] [address] [place] [address] 10/18/2015 14:01:28 10/19/2015 11:21:51 Chronic constipation 980413122 K59.00 Backache 985980883 M54.9 Headache 77671752 R51 Allergic rhinitis 567169 04 J30.9 Anemia 364469025 D64.9 Urinary tr act infectious disease 81185607 N39.0 [id number] America Ortiz [facility] Louis Martin ([facility] 122) [address] [facility] [address] [place] [address] 10/18/2015 15:04:38 10/19/2015 09:30:24 Vaginal discharge 900731157 N89.8 Venereal d isease screening 855656247 Z11.3 At [facility] risk of urinary tract infection 570712157 Z91.89 [id number] America Ortiz [facility] Louis Martin ([facility] [address]) [address] [place] [address] 10/24/2015 14:09:10 10/24/2015 15:29:58 Herpes simplex 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 B00.9 [id number] TL Alexander ([place] [address]) [address] [facility] [place] [address] 11/01/2015 13:43:26 11/06/2015 11:16:20 Headache 49387743 R51 Backache 390828272 M54.9 Chronic constipation 236 483209 K59.00 [id number] America Ortiz [facility] Louis Martin ([facility] 122) [address] [facility] [address] 06/11/2016 16:14:50 06/12/2016 09:23:33 Vaginal discharge 675331931 N89.8 At [facility] risk of urinary tract infection 708935438 Z91.89 [id number] America Ortiz [facility] Louis Martin ([facility] 122) [address] [place] [address] 07/17/2016 10:51:41 07/17/2016 14:00:45 Venereal disease screening 472621337 Z11.3 [id number] TL Alexander ([place] [address]) [address] [facility] [address] [place] [address] 07/23/2016 10:44:29 07/23/2016 16:25:01 Backache 536370066 M54.9 Counseled on back pain, testing and medication s-Ice/heat alternate to back. Naproxen/F lexeril for pain/tight ness. Migraine 52824273 G43.90 9 Counseled on migraine and referral advsed to use Naproxen as needed and Tylneol for break through pain [id number] TL Alexander ([facility] 205) [address] [place] [address] 10/23/2016 08:51:05 10/24/2016 09:07:28 Upper respiratory infection 43691554 J06.9 Counseled on URI and medication s-Warm salt water gargles, rest, increase fluids. Tylenol/Ib uprofen for pain/fever , humidifier in the house. [id number] TL Alexander ([place] [address]) [address] [facility] [address] [place] [address] 12/26/2016 15:57:06 12/27/2016 10:12:00 Edema of lower extremity 878628479 R60.0 Counseled on edema- Decrease salt intake and increase water intake. Elevate feet when you can, stay out of the heat as much as possible, wear compressio n stockings at work, advised to return for any worsening or new concerns [id number] TL Alexander ([facility] 205) [address] [facility] [address] [place] [address] 03/05/2017 16:10:53 03/07/2017 08:58:27 Chronic back pain 115562169 M54.9 Renewal of prescription 151292577 Z76.0 [id number] mAerica Ortiz [facility] Louis Martin ([facility] 122) [address] [facility] [address] [place] [address] 04/09/2017 09:56:50 04/09/2017 13:24:25 Gynecologic examination 95690855 Z01.535 [id number] America Ortiz [facility] 122[facility] [address] [facility] [address] [place] [address] 04/23/2017 11:44:30 04/23/2017 14:06:34 HPV - Human papillomavirus test positive 167413889 R87.639 [id number] TL Alexander 14 IM [address] [facility] [address] [place] [address] 06/30/2018 14:29:27 07/04/2018 10:44:45 Viral syndrome 814889561 B34.9 Counseled on viral syndrome and medication -Warm salt water gargles, rest, increase fluids. Over the counter Muccinex. Tylenol/Ib uprofen for pain/fever , humidifier in the house. Use inhaler for wheezing, if no improvemen t by Friday advised to call office. encourage smoking cessation Asthma 594281183 J45.90 9 Albuterol inhaler as needed. Return for use of inhaler more than 3 times a week, cough or wheezing at night. Smoking cessation encouraged . Identify and stay away from triggers. f/u 6 months Tobacco de pendence syndrome 52828767 F17.573 [id number] MD Louis Navarrete [address] [place] [address] 07/10/2018 09:37:15 07/10/2018 11:59:56 Venereal disease screening 869460956 Z11.3 At [facility] risk of urinary tract infection 057957727 Z91.89 Exposure t o sexually transmissible disorder 358716181 Z20.2 [id number] TL Nolan [address] [place] [address] 07/28/2018 13:15:12 07/28/2018 14:32:47 Gonorrhea 05208297 A54.9 Patient educated about STI and treatment and pt was already treated on 07/10/18. Pt educated STD prevention and use condoms, good vulvar hygiene. Pt's past partner was already treated. Pt notified to follow up in 1 week for EDILMA or call office if issue occurs. Bacterial vaginosis 4197 32346 N76.0 Pt educated on BV and medication . [id number] MD Louis Navarrete [address] [place] [address] [address] 10/01/2018 10:16:34 10/01/2018 15:59:16 Irregular periods 84062611 N92.6 Swelling of vagina 24278 4006 N76.89 [id number] MD Louis Navarrete [address] Fox [address] [place], [place] [address], [place] [address] 10/02/2018 14:09:12 10/05/2018 09:18:38 Depot contraceptive-no problem 144894773 Z30.42 [id number] TL Nolan [address] Fox [address] [place] [address] 12/28/2018 10:37:38 12/29/2018 08:43:13 Depot contraceptive-no problem 439560495 Z30.42 Risks of hormonal control reviewed,m enstrual bleeding or no bleeding, weight changes, breast tenderness and mood changes. Risks of bone loss with Depo Provera also reviewed. All questions answered. Pt understand s & accepts risks. Instructio ns/warning signs given. Safe sex counseling done. Patient was instructed to follow up with appointpurnima t for follow up pap smear. [id number] TL Alexander 14 IM [address] [facility] [place] [address] 02/15/2019 15:13:37 02/16/2019 14:04:06 Hip pain 73555760 M25.559 Counseled on hip strain-Ice /heat alternate to back. Ibuprofen (has)- pain/tight ness as needed with food-retur n for worsening or no improvemen t Neck pain 65196647 M54.2 Counseled on neck pain and do ROM stretching to area after work. Use biofreeze/ aspercreme to area, lidocaine OTC patches-f/ u if no improvemen t for PT for both areas [id number] EDDY Espinoza [address] OB [address] [facility] [place] [address] 03/25/2019 08:42:18 03/26/2019 15:10:51 Depot contraceptive-no problem [id number] Z30.42 [id number] TL Alexander 14 IM [address] [facility] [place] [address] 05/04/2019 16:23:36 05/05/2019 10:23:56 Migraine [id number] G43.909 Counseled on migraine, medication and referral-t trevor a headache log to neuro appointmen t-stay hydrated-h ave eyes checked Adult heal th examination [id number] Z00.00 [id number] EDDY Baker 14 OB [address] [facility] [place] [address] 06/21/2019 16:21:04 06/22/2019 11:27:33 Contraception care [id number] Z30.40 RTC in 3 months for depo-prove ra injection [id number] MADINA Warner [address] [place] [address] 03/14/2020 09:09:36 03/15/2020 09:29:30 Suspected COVID-19 687449896 Z03.818 D/w pt the current pandemic of COVID-19 and call for social isolation in order to blunt the curve and minimize risk and spread. Encouraged patient and family to take restrictio ns seriously. They have verbalized understand ing of such. Viral syndrome 952184752 B34.9 [id number] MD Louis Navarrete 14 OB [address] [facility] [address] [place] [address] 08/25/2020 10:36:41 08/29/2020 10:34:37 Gynecologic examination 13490326 Z01.419 CBE and pap smear performed Venereal d isease screening 763494401 Z11.3 Constipation 68269329 K5 9.00 At [facility] risk of urinary tract infection 063496983 Z91.89 [id number] MD Louis Navarrete 14 OB 4 [facility] [address] [place] [address] 10/25/2020 11:02:01 10/26/2020 12:47:48 Low grade squamous intraepithelial lesion on cervical Papanicolaou smear [id number] 9105 R87.612 RTC in 2 weeks for follow up visit [id number] Leta Xie MA [facility] [address] [place] [address] 02/13/2021 15:57:43 02/14/2021 16:05:35 Constipation 27849513 K59.00 - Recommend to increase fiber content in diet with more fruits and vegetable. - Drink plenty of water.- Take medication as prescribed , if getting worse go to ER.- If no improvemen t in 1-2 weeks, return to clinic for further assessment or follow up with Gastroente rology Adult [facility] examination 260625877 Z00.00 - Instructed patient if albuterol usage increases beyond 2-3 times per week for 2 weeks, it may been a sign of worsening control.- Call office or go to ER for worsening cough, wheeze or work of breathing. - Follow up in office in 2 months- Patient verbalized understand ing. Hyperlipid emia screening 553673933 Z13.220 Diabetes m ellitus screening 519210417 Z13.1 Asthma 094317603 J45.90 9 - Instructed patient if albuterol usage increases beyond 2-3 times per week for 2 weeks, it may been a sign of worsening control.- Call office or go to ER for worsening cough, wheeze or work of breathing. - Follow up in office in 2 months- Patient verbalized understand ing. [id number] MADINA SWEET 14 IM [address] [facility] [place] [address] 07/17/2021 16:19:52 07/20/2021 10:38:21 Asthma 091085260 J45.20 - Instructed patient if albuterol usage increases beyond 2-3 times per week for 2 weeks, it may been a sign of worsening control.- Call office or go to ER for worsening cough, wheeze or work of breathing. - Follow up in office in 2 months- Patient verbalized understand ing. Nausea 220628849 R11.0 - Patient encourage to call and reschedule appointmen t with GI specialist [id number] MADINA SWEET 14 IM [address] [facility] [place] [address] 08/22/2021 16:39:20 08/28/2021 10:09:27 Abdominal pain 30966739 R10.9 - Dr. Villalba following and managing care Migraine with aura 02965 06 G43.109 - Keep a headache diary to see if you can determine what are your headache/m igraine triggers- Take medicine as directed for migraine prophylaxi s- Take breakthrou gh headache medicine as soon as you feel headache coming on- Lay in a dark room if possible and try to relax- Drink plenty of water, get appropriat e rest, try auto relaxation , avoid triggers if known [id number] MD Louis Navarrete 14 OB [address] [facility] [place] [address] 12/03/2021 09:53:43 12/07/2021 07:11:50 Low grade squamous intraepithelial lesion on cervical Papanicolaou smear [id number] 9105 R87.612 --CBE and pap smear performed Venereal d isease screening 790316851 Z11.3 [id number] CHELA Glass 14 OB [address] [facility] [place] [address] 12/12/2021 13:47:20 12/13/2021 06:46:21 Gonorrhea 77577154 A54.9 [id number] MD Louis Navarrete 14 OB [address] [facility] [place] [address] 03/26/2023 14:50:04 04/01/2023 14:19:50 Gynecologic examination 98191219 Z01.419 CBE and pap smear performed Vaginal discharge 327317 006 N89.8 Bacterial vaginosis 4197 98476 N76.0 [id number] Isatu EDDY Burgos [place] 14 OB [address] [facility] [place] [address] 04/23/2023 14:01:46 04/24/2023 09:48:56 Human papilloma virus infection 986751775 B97.7 [id number] BENITA BENITEZ NP [address] [address] 06/27/2023 08:45:37 07/07/2023 15:19:09 Right side sciatica 9551003713 39068 M54.31 - Apply heat to low back 10-15 minutes 3 times a day. - No heavy lifting over 10 LBS. - Stretching exercises per handout twice daily. ( take muscle relaxer/pa in med- 15 min prior) - Avoid bending or twisting at the waist; keep hips and shoulders aligned at all times.- Avoid sitting if possible, unless it feels better than standing. - Do not do anything that makes your symptoms worse. - RTC for worsening symptoms Irritable bowel syndrome characterized by constipation 541180808 K58.1 Administra tion of influenza vaccine 82491715 Z23 - recommende d annual influenza vaccinatio n detection examination 90051027 Z32.00 [id number] BENITA BENITEZ [address] [address] 08/20/2023 14:50:59 08/21/2023 14:20:51 Migraine with aura 3304381 G43.109 - Keep a headache diary to see if you can determine what are your headache/m igraine triggers- Take medicine as directed for migraine prophylaxi s- Take breakthrou gh headache medicine as soon as you feel headache coming on- Lay in a dark room if possible and try to relax- Drink plenty of water, get appropriat e rest, try auto relaxation , avoid triggers if known [id number] BENITA BENITEZ NP [address] [address] 12/02/2023 10:30:10 12/05/2023 14:41:13 Asthma 606255669 J45.20 - Instructed patient if albuterol usage increases beyond 2-3 times per week for 2 weeks, it may been a sign of worsening control.- Call office or go to ER for worsening cough, wheeze or work of breathing. - Follow up in office in 2 months- Patient verbalized understand ing. Right side sciatica [id number] [id number] 64755 M54.31 - Apply heat to low back 10-15 minutes 3 times a day. - No heavy lifting over 10 LBS. - Stretching exercises per handout twice daily. ( take muscle relaxer/pa in med- 15 min prior) - Avoid bending or twisting at the waist; keep hips and shoulders aligned at all times.- Avoid sitting if possible, unless it feels better than standing. - Do not do anything that makes your symptoms worse. - RTC for worsening symptoms Sore throat 988017547 J0 2.9 - Rapid strep negative.- Use over-the-c ounter throat lozenges to soothe pain.- drink plenty of fluids, ( warm/hot teas, or soups may help decrease throat pain).- RTC with worsening symptoms Viral uppe r respiratory tract infection 462147771 J06.9 Warm salt water gargles, rest, increase fluids. Over the counter decongesta nt. Tylenol/Ib uprofen for pain/fever , humidifier in the house. [id number] Nishi Loyola NP-C Louis 14 OB [address] [facility] [place] [address] 12/24/2023 16:54:07 12/26/2023 08:04:26 High risk sexual behavior 789599922 Z72.51 urine collected and sent to lab. Counseled on safe sex, condom use and STD precaution s discussed screening completed per patient's request [id number] KATJA GOSS-KARINE Borrego 14 IM [address] [facility] [place] [address] 02/09/2024 15:25:24 03/15/2024 17:34:15 Venereal disease screening 803525932 Z11.3 -Patieng agreeable to vaginal and oral STD screening. Patient declined HIV, syphillis, hepatitis b and C testing.-N P discussed importance of safe sex practices including condom use to prevent STDs and unplanned and to limit number of sexual partners to reduce exposure to STDs.-ENVIRONMENTAL HEALTH SAFETY MANAGER provided safer sex care instructio ns.-Patien t to follow up with PCP for further care. [id number] KATJA GOSS- Louis 14 IM [address] [facility] [address] [place] [address] 03/09/2024 14:31:43 03/16/2024 08:28:18 Body mass index 20-24 - normal 061981686 Z68.22 BMI=22.6 Urinary symptoms 0916646 08 R39.9 -UA positive for leukocytes and nitrites.- Patient agreeable to urine culture-Pa tient agreeable to treatment with macrobid 100mg BID for 5 days. ENVIRONMENTAL HEALTH SAFETY MANAGER advised patient to consume OTC probiotic or yogurt while on antibiotic therapy.-P atient agreeable to symptom management with pyridium TID for 2 days.-Amy ent agreeable to vaginal swab as well to rule out other causes for her symptoms.- Patient to return to clinic if symptoms worsen or do not improve.-E R precaution s advised. Goals Section Goal Description Progress Status Start Date LastModified by Organization Details LastModified Time Chronic Condition Action Plan Follows action plan for any worsening of chronic condition(s) as per care team recommendation (s) Robert active 2023 Gabrielle Montejo LPN Information not available 12/17/2023 19:13:49 Exercise Regularly Follows a regular exercise regimen or instructed exercise plan as per care team recommendation (s) Robert active 2023 Gabrielle Montejo LPN Information not available 12/17/2023 19:09:48 Activities of Daily Living Performs activities of daily living independently or with minimal assistance NoCceleste active 2023 Gabrielle Montejo LPN Information not available 12/17/2023 19:15:05 Knowledge of Disease or Condition Demonstrates understanding of disease(s) or condition(s) NoCceleste active 2023 Gabrielle Montejo LPN Information not available 12/17/2023 19:15:05 Follow-up Appointmen t(s) Attends referral and/or follow-up appointment(s) as per care team recommendation (s) Robert active 2023 Gabrielle Montejo LPN Information not available 12/17/2023 19:14:21 Mobility Maintains or improves baseline mobility and/or moves independently [facility] active 2023 Gabrielle Montejo LPN Information not available 12/17/2023 19:13:49 Pain Management Plan Reports satisfaction with current pain management plan (e.g., medication and non-medication pain relief interventions) [facility] active 2023 Gabrielle Montejo LPN Information not available 12/17/2023 19:13:49 Effective Pain Management Reports or exhibits adequate pain relief as determined by appropriate pain scale [facility] active 2023 Gabrielle Montejo LPN Information not available 12/17/2023 19:13:49 Medication Regimen Follows medication regimen as per care team recommendation (s) [facility] active 2023 Gabrielle Montejo LPN Information not available 03/23/2024 15:03:15 Health Concerns Section Related Observation LastModified by Organization Detai ls LastModified Time None Recorded Concern Status LastModified by Organization Details LastModified Time Asthma Active Gabrielle Montejo LPN Not Available 19:12:45 Right side sciatica Active Gabrielle Montejo LPN Not Antonette ilable 12/17/2023 19:13:49 Urinary symptoms Active Gabrielle Montejo LPN Not Availa ble 03/23/2024 15:03:15 Sore throat Inactive Gabrielle Montejo LPN Not Available 0 01/30/2024 17:40:11 Viral upper respiratory tract infection Inactive Gabrielle Montejo LPN Not Available 01/30/2024 1 7:40:15 Advance Directives Directive N: Payers Encounter Date Sequence Insurance Name Policy Number Policy Grant Covered Member ID Grant Member ID Guarantor Name 08/20/2023 1 [facility] (MEDICAID HMO) [id number] Gabe Mathews [id number] Gabe Mathews 12/02/2023 1 [facility] (MEDICAID HMO) [id number] Gabe Mathews [id number] Gabe Mathews 12/24/2023 1 [facility] (MEDICAID HMO) [id number] Gabe Mathews [id number] Gabe Mathews 02/09/2024 1 [facility] (MEDICAID HMO) [id number] Gabe Mathews [id number] Gabe Mathews 03/09/2024 1 [facility] (MEDICAID HMO) [id number] 0003 Gabe Mathews [id number] Gabe Mathews Notes Date Note Type Note Provider Name and Address Organization Details Recorded Time 08/20/2023 text/html HeadacheReported bypatient.Location:[facility] Quality:not the worst headache ever; similar to previous headaches;throbbing;pa in Severity:severe; pain level 10/10 Duration:intermittent Onset/Timing:still present; occur daily; occur every few weeks Context:not related to trauma Alleviating factors:nothing gives relief Associated Symptoms:nausea;vomiti ng;photophobia; sometimes blackout Ms. Mathews presented in office today complaining of migraine headache everyday x 2 weeks. Patient claims she has tried several migraine medications and none of them have helped. BENITA BENITEZ NP Attn: Accounting, [place], [id number] [place] [address] 08/20/2023 15:37:23 12/02/2023 text/html Upper Respirator y SymptomsReported bypatient.Location:[facility]; throat Quality:productive cough;colored phlegm;congested;hacki ng cough Severity:moderate Onset/Timing:gradual Context:no foreign travel; non-smoker;sick contact(all three kids) Associated Symptoms:no shortness of breath; no change in number of pillows needed to sleep at night; no sweats; no fever; no significant weight gain; no significant weight loss; no vomiting; no diarrhea; no rash; no nausea;yellow sputum;wheezing;mornin g cough;sore throat Ms. Mathews came into the office today complaining of coughing, chest congestion, sore throat, runny nose, bodily aches, and right side sciatic back discomfort for three days. BENITA BENITEZ NP Attn: Accounting, [place], [address], [facility] 12/02/2023 12:48:39 12/24/2023 text/html Pt is here for s td screening. pt denies known exposure. pt denies any complaints. TL Nolan Attn: Accounting,[address] [place], [address], [facility] 12/24/2023 17:01:31 02/09/2024 text/html Patient presents to the clinic for STD screening. Patient reports she is established with Benita PAINTER for primary care. Patient's past medical history includes asthma, IBS, migraines, and anemia. STD screening-Patient reports history of gonorrhea, trichomonas. Patient reports she was treated and had negative test of cure.-Patient reports she has had one new sexual partner.-Patient reports she is unsure the number of sexual partners she has had total.-Patient reports she is having oral, anal, and vaginal sex.-Patient reports she is not using any form of protection.-Patient reports history of tubal ligation.-Patient reports she is having some vaginal spotting. Patient reports vaginal odor and vaginal discharge.-Patient denies experiencing fevers or pelvic pain. MASON GOSS Attn: Accounting,[address] [place], [address], [facility] 03/14/2024 16:23:35 03/09/2024 text/html Patient presents to the clinic with acute concerns for urinary symptoms. Patient reports she is established with Benita ENVIRONMENTAL HEALTH SAFETY MANAGER for primary care. Patient's past medical history includes asthma, IBS, migraines, and anemia. Urinary Symptoms-Patient reports she started feeling unwell on Friday.-Patient reports experiencing symptoms of burning with urination and hematuria.-Patient denies experiencing symptoms of fevers, chills, urinary frequency, or pelvic pain. MASON GOSS Attn: Accounting,[address] [place], [address], [facility] 03/16/2024 06:39:46 OBGyn Episode No OBEpisode recorded.
--- OUTSIDE RECORDS SUMMARY | 2024-10-06 08:45 | XMS_ITS | Referral Summary ---
Author Organization [facility] Address [address] [place] [address] Care Team Providers Care Catheter Finisher And Inspector Name Role Phone Mike Veras MD Primary Care Provider Allergies No known active allergies Medications albuterol HFA (PROVENTIL HFA) 90 mcg/actuation inhaler Inhale 2 puffs every 4 (four) hours as needed for wheezing 1 Inhaler 9 Active hydrocortisone (ANUSOL-HC) 2.5 % rectal cream When hemorrhoids are flared up, insert 1 applicator-ful nightly until issues subsided. 28 g 2 2 Active simethicone (Gas-X Extra Strength) 125 mg chewable tablet Take 1 tablet (125 mg total) by mouth 3 (three) times a day 90 tablet [address] (PROTONIX) 40 mg EC tablet Take one pill daily as needed for heartburn and reflux issues. 90 tablet 3 Active azithromycin (ZITHROMAX) 500 mg tablet 1 tab qhs for 3 days 3 tablet 4 Active Active Problems Problem Noted Date Diagnosed Date Irritable bowel syndrome with constipation 08/29 Nausea without vomiting 02/22/2022 Chronic constipation 07/27/2021 Tubular adenoma of colon 07/27/2021 Epigastric pain 07/27/2021 Gastroesophageal reflux disease without esophagi tis 07/27/2021 Constipation 03/28/2021 Other fracture of right less er toe(s), initial encounter for closed fracture 11/09/2020 Dental abscess 11/17/2018 Dentalgia 01/07/2018 Dental caries extending into pulp 01/07/2018 Social History Tobacco Use Types Packs/Day Years Used Date Smoking Tobacco: Every Day Cigarettes Smokeless Tobacco: Never Tobacco Cessation:Ready to Q uit: Not Asked; Counseling Given: Not Answered Alcohol Use Standard Drinks/Week Comments Yes 7 (1 standard drink = 0.6 oz pur e alcohol) socially AUDIT-C Answer Date Recorded Q1: How often do you have a drink containing alc ohol? Monthly or less 08/29/2022 Q2: How many drinks containi ng alcohol do you have on a typical day when you are drinking? 1 or 2 08/29/2022 Q3: How often do you have si x or more drinks on one occasion? Never 08/29/2022 Personal Safety Answer Date Recorded Have you ever been in or are you currently in a harmful physical or emotional relationship or is someone making you feel afraid or unsafe? Denies 10/04/2023 Comments No Sex and Gender Information Value Date Recorded Sex Assigned at Not on file Legal Sex Female 12:21 PM CAMPUS INTERVIEWS INTERN Gender Identity Not on file Sexual Orientation Not on file Last Filed Vital Signs Vital Sign Reading Time Taken Comments Blood Pressure 116/68 10/04/2023 5:30 PM CAMPUS INTERVIEWS INTERN Pulse 55 10/04/2023 5:30 PM CAMPUS INTERVIEWS INTERN Temperature 36.3 C (97.3 F) 10/04/2023 2:46 PM CAMPUS INTERVIEWS INTERN Respiratory Rate 16 10/04/2023 2:46 PM CAMPUS INTERVIEWS INTERN Oxygen Saturation 96% 10/04/2023 5:30 PM CAMPUS INTERVIEWS INTERN Inhaled Oxygen Concentration - - Weight 63.5 kg (140 lb) 10/04/2023 2:46 PM CAMPUS INTERVIEWS INTERN Height 170.2 cm (5' 7 ) 10/04/2023 2:46 PM CAMPUS INTERVIEWS INTERN Body Mass Index 21.93 10/04/2023 2:46 PM CAMPUS INTERVIEWS INTERN Plan of Treatment Not on file Insurance [facility] [place] [address] [address] [facility] [place] [address] [address] [place] [address] [facility] Advance Directives For more information, please contact: [phone] * Full Code (Latest Code Status on File) Date Activated Date Inactivated Comments 05/06/2022 10:41 AM 05/06/2022 4:48 PM * Full Code Date Activated Date Inactivated Comments 05/06/2022 10:41 AM 05/06/2022 10:41 AM * Full Code Date Activated Date Inactivated Comments 05/08/2021 1:09 PM 05/08/2021 7:41 PM * Full Code Date Activated Date Inactivated Comments 05/08/2021 1:09 PM 05/08/2021 1:09 PM Care Teams Catheter Finisher And Inspector Relationship Specialty Start Date End Date Mike Veras MD [address] [place] [address] DR GALAVIZ B [address] [address] PCP - General Obstetrics and Gynecology 08/25/20
--- OUTSIDE RECORDS SUMMARY | 2024-10-06 08:45 | XMS_ITS | Clinical Summary ---
Author Organization [facility] Address [address] [place] [address] Care Team Providers Care Catering Assistant Name Role Phone Mike Veras MD Primary [...] 01/07/2018 Dental caries extending into pulp 01/07/2018 Surgical History Surgery Date Site/Laterality Comments TUBAL LIGATION COLONOSCOPY 05/08/2021 1st Medical History Medical History Date Comments Asthma Social History Tobacco Use Types Packs/Day Years [...] on file Legal Sex Female 12:21 PM ORGANIZATIONAL DEVELOPMENT CONSULTANT Gender Identity Not on file Sexual Orientation Not on file Obstetrics History Last Filed Vital Signs Vital Sign Reading Time Taken Comments Blood Pressure 116/68 10/04/2023 5:30 PM ORGANIZATIONAL DEVELOPMENT CONSULTANT Pulse 55 10/04/2023 5:30 PM ORGANIZATIONAL DEVELOPMENT CONSULTANT Temperature 36.3 C (97.3 F) 10/04/2023 2:46 PM ORGANIZATIONAL DEVELOPMENT CONSULTANT Respiratory Rate 16 10/04/2023 2:46 PM ORGANIZATIONAL DEVELOPMENT CONSULTANT Oxygen Saturation 96% 10/04/2023 5:30 PM ORGANIZATIONAL DEVELOPMENT CONSULTANT Inhaled Oxygen Concentration - - Weight 63.5 kg (140 lb) 10/04/2023 2:46 PM ORGANIZATIONAL DEVELOPMENT CONSULTANT Height 170.2 cm (5' 7 ) 10/04/2023 2:46 PM ORGANIZATIONAL DEVELOPMENT CONSULTANT Body Mass Index 21.93 10/04/2023 2:46 PM ORGANIZATIONAL DEVELOPMENT CONSULTANT Plan of Treatment Health Maintenance Due Date Last Done Comments Cervical Cancer Screening 1989 Depression Screening 1989 Hepatitis C Screening 1989 DTaP/Tdap/Td Vaccine (6 - Tdap) 2000 12/11/1993, 02/14/1992, 12/15/1990, Additional history exists Varicella Vaccines (1 of 2 - 13+ 2-dose series) 2002 Regular Well Visit/Exam 18-64 2007 Pneumococcal vaccine <65 (1 of 2 - PCV) 2008 Covid-19 Vaccine (3 - 2023- season) 2024 12/27/2020, 11/29/2020 Influenza Vaccine (#1) 2024 06/27/2023 Hepatitis B Screening Completed 11/19/2000 , 06/18/2000, 05/12/2000 HPV Vaccines Aged Out No longer eligi ble based on patient's age to complete [place] [address] [place] [address] [facility] [place] [address] [place] [address] [facility] IDTN [facility] Advance Directives For more information, please contact: [phone] * Full Code (Latest Code Status on File) Date Activated Date Inactivated Comments 05/06/2022 10:41 AM 05/06/2022 4:48 PM * Full Code Date Activated Date Inactivated Comments 05/06/2022 10:41 AM 05/06/2022 10:41 AM * Full Code Date Activated Date Inactivated Comments 05/08/2021 1:09 PM 05/08/2021 7:41 PM * Full Code Date Activated Date Inactivated Comments 05/08/2021 1:09 PM 05/08/2021 1:09 PM Care Teams Catering Assistant Relationship Specialty Start Date End Date Mike Veras MD [address] [place] [address] DR GALAVIZ [address] [place] [address] PCP - General Obstetrics and Gynecology 08/25/20
--- OUTSIDE RECORDS SUMMARY | 2024-10-06 08:45 | XMS_ITS | Clinical Summary ---
Author Organization [facility] Address [address] [place] [address] Phone Care Team Providers Care Bobbin Handler Name Role Phone Ernestine, Benita Tamez APRN, DAVID Primary Care Provider Janell Mitchell APRN, CNP Unavailable Allergies No known active allergies Medications albuterol (PROVENTIL HFA, VENTOLIN HFA) 108 (90 Base) MCG/ACT Aerosol Solution take 2 Puffs by inhalation every 6 hours as needed for Wheezing. 1 Inhaler 0 7 Active butalbital-acet aminophen-caffe ine (FIORICET, ESGIC) 50-325-40 MG Tablet Take 1 Tab by mouth every 4 hours as needed for Headaches or Migraine. 30 Tab 8 Active SUMAtriptan (IMITREX) 50 MG Tablet Take 1 Tab by mouth once as needed for Migraine for up to 1 dose. Use as directed. May repeat dose in 2 hours if headache recurs. 9 Tab 9 Active Additional Information Patient not taking.Reported on 07/09/2023 famotidine (PEPCID) 20 MG Tablet Take 1 Tablet by mouth 2 times daily. 60 Tablet 1 Active Additional Information Patient not taking.Reported on 07/09/2023 polyethylene glycol (MiraLax) 17 GM/SCOOP Powder Take 17 g by mouth daily. 17 g = 1 scoop. Dissolve in 4 -8 oz of water or other liquid. 225 g 2 Active traMADol (ULTRAM) 50 MG TabletIndicatio ns:Low back pain with left-sided sciatica Take 1 Tablet by mouth every 8 hours as needed for Moderate or more severe pain. 20 Tablet 3 Active Additional Information Patient not taking.Reported on 07/09/2023 cyclobenzaprine (FLEXERIL) 10 MG Tablet TAKE 1 TABLET BY MOUTH THREE TIMES DAILY FOR 10 DAYS NEEDED 3 Active ibuprofen (MOTRIN) 800 MG Tablet TAKE 1 TABLET BY MOUTH THREE TIMES DAILY FOR 10 DAYS 3 Active methylPREDNISol one (MEDROL DOSPACK) 4 MG Tablet Therapy Pack FOLLOW PACKAGE DIRECTIONS 3 Active simethicone (MYLICON) 125 MG Chewable Tablet Take 125 mg by mouth. 3 Active Ubrogepant (Ubrelvy) 50 MG Tablet Take by mouth. Activ e Active Problems No known active problems Social History Tobacco Use Types Packs/Day Years Used Date Smoking Tobacco: Former Cigarettes 0.5 14 2 - 2020 Smokeless Tobacco: Never Alcohol Use Standard Drinks/Week Comments Not Currently 0 (1 standard drink = 0.6 oz pur e alcohol) PATIENT QUIT Sexually Active Control Partners Comments Yes Male Comments No Sex and Gender Information Value Date Recorded Sex Assigned at Not on file Legal Sex Female 10:59 PM CDT Gender Identity Not on file Sexual Orientation Not on file Last Filed Vital Signs Vital Sign Reading Time Taken Comments Blood Pressure 135/65 03/21/2024 7:16 PM CDT Pulse 62 01/21/2024 9:55 AM CDT Temperature 36.4 C (97.5 F) 01/21/2024 7:31 AM CDT Respiratory Rate 18 01/21/2024 9:55 AM CDT Oxygen Saturation 100% 01/21/2024 9:55 AM CDT Inhaled Oxygen Concentration - - Weight 65.3 kg (144 lb) 01/21/2024 7:31 AM CDT Height 170.2 cm (5' 7 ) 01/21/2024 7:31 AM CDT Body Mass Index 22.55 01/21/2024 7:31 AM CDT Plan of Treatment Health Maintenance Due Date Last Done Comments Hepatitis C Virus (HCV) Screening 1989 TdaP Immunization 1989 Pap Smear 2010 Cervical Cancer Screening (CCS) 2019 HPV/Cotest 2019 Influenza Immunization (#1) 2024 06/27/2023 SARS-COV-2 Immunization ( season) 2024 12/27/2020, 11/29/2020 Respiratory Syncytial Virus (RSV) Immunization (Adult) (1 - 1-dose 75+ series) 2064 DTaP/Tdap/Td Immunization Discontinued 1993, 02/14/1992, 12/15/1990, Additional history exists Hepatitis B Immunization Completed 001, 06/18/2000, 05/12/2000 Meningococcal Immunization (ACWY) Aged Out No longer eligible based on patient's age to complete this topic Pneumococcal Immunization Combined Aged Out No longer eligible based on patient's age to complete this topic Rotavirus Immunization Aged Out No lo nger eligible based on patient's age to complete this topic Insurance MEDICAID [place] Care Teams Bobbin Handler Relationship Specialty Start Date End Date Benita Sinha APRN, SEC REPORTING CONSULTANT [address] [place] [address] PCP - General Advanced Practice Nurse 08/21/23 Janell Mitchell APRN, SEC REPORTING CONSULTANT [address] [place] [address] Nurse Practitioner Advanced Practice Nurse 07/09/23
--- NOTE | 2024-10-06 08:57 | ED.LOWEXIN ---
HPI - Extremity Injury (Lower) General Chief Complaint: Extremity Injury, Lower Stated Complaint: Right Knee/Left Hip Pain Time Seen by Provider: 10/06/24 08:57 Source: patient, RN notes reviewed and old records reviewed Mode of arrival: ambulatory Limitations: no limitations History of Present Illness HPI Narrative: 34 year old female presents to [facility] with complaints of falling at her house yesterday between wall and bed, not sure how she landed. Patient reports pain to her right knee and her left hip. Patient has small bruise noted to the upper thigh below hip region with no acute swelling and small abrasion to the upper lateral right knee. Patient is able to ambulate with some limping noted but is able to apply full weight bearing and moves all extremities well on her own power MD complaint: hip injury (left) and knee injury (right) Onset (ago): day(s) (yesterday) Type of Injury: blunt and other Place: home Severity: moderate Exacerbating factors: weight bearing and movement Treatments prior to arrival: other (none) Related Data Allergies Allergy/AdvReac Type Severity Reaction Status Date / Time No Known Allergies Allergy Verified 05/26/24 10:29 Review of Systems Review of Systems: CONSTITUTIONAL: Denies fever, chills, or sweats. EYES: Denies visual changes, redness, or discharge. ENT: Denies rhinorrhea, congestion, sore throat, or otalgia. CARDIOVASCULAR: Denies chest pain, palpitations, or edema. RESPIRATORY: Denies cough or dyspnea. GASTROINTESTINAL: Denies abdominal pain, nausea, vomiting, or diarrhea. GENITOURINARY: Denies dysuria or hematuria. SKIN: Denies rash or itching. MUSCULOSKELETAL: Denies back pain, reports pain to her left hip and right knee from fall, or myalgia. NEUROLOGIC: Denies headache, numbness, or weakness. PSYCHIATRIC: Denies anxiety or depression. All systems reviewed & are unremarkable except as noted in HPI and below PMFSH Social History Social History (Updated 10/08/24 @ 14:43 by Marlin Almodovar NP) Smoking status: Smoker, status unknown Alcohol intake: unknown Substance use: unknown Gender identity (if verbalized by the patient): Female Comments At time of signature, agree with nursing past medical, surgical, social and family history. There is no relevant family history pertinent to the presenting complaint Exam Narrative: GENERAL: Well-appearing, well-nourished, and in no acute distress. HEAD: Normocephalic, atraumatic. EYES: PERRLA and EOMI. ENT: Nares clear, no rhinorrhea or epistaxis. Mucous membranes moist.TM's normal with good light reflex throat pink with no swelling. NECK: Supple.no lymphadenopathy CHEST: Clear to auscultation. No respiratory distress. no cough noted SAO2 100% on room air HEART: Regular rate and rhythm. No murmur heard. Normal peripheral pulses. ABDOMEN: Soft, nontender, nondistended, normal active bowel sounds. EXTREMITIES: Normal range of motion. No edema. Patient has pain to right knee with no acute swelling or bruising noted small abrasion to lateral upper knee, pain to her left hip with small bruise to left upper outer thigh near hip no swelling note. patient is able to move all extremities on own power.minimal limp noted on ambulation but is able to put full weight bearing on extremities. SKIN: Warm, dry, no rash. NEURO: No focal deficits. Alert and oriented x3. Course Course Emergency Course: Patient is aware of diagnosis, understands and agrees to treatment plan.? Anticipatory guidance given.? Patient agrees to follow-up as directed and is aware of reasons to seek care at the emergency department. Portions of this record may have been created with voice recognition software Level of Care: Express Care Visit Vital Signs Vital signs: Vital Signs Temperature 36.3 C L 10/06/24 08:38 Pulse Rate 68 10/06/24 08:38 Respiratory Rate 16 10/06/24 08:38 Blood Pressure 122/71 10/06/24 08:38 Pulse Oximetry 100 10/06/24 08:38 Oxygen Delivery Room Air 10/06/24 08:38 Temperature 36.3 C L 10/06/24 08:38 Pulse Rate 68 10/06/24 08:38 Respiratory Rate 16 10/06/24 08:38 Blood Pressure 122/71 10/06/24 08:38 Pulse Oximetry 100 10/06/24 08:38 Oxygen Delivery Room Air 10/06/24 08:38 Reviewed MDM - Extremity Injury (Lower) Differential Diagnosis Differential diagnosis: Likely other (contusion of right knee, joint effusion right knee, contusion of left hip, pain left hip) Medical Records Attestation: I reviewed the patient's medical records. Imaging Data Attestation: I personally reviewed and interpreted this imaging study as follows: My impression: right Knee: degenerative disease and a small suprapatellar joint effusion without acute fracture left hip: degenerative disease without acute fracture or dislocation Radiologist's impression: [facility] [address] [place] [address] XRay Report Signed Patient: Gabe Mathews : 1990 MR#: [id number] Age: 34 Acct:[id number] Loc: [facility] ADM Date: 10/06/24Attending Dr: Ordering Physician: Marlin Almodovar APRN Date of Service: 10/06/24 Procedure(s): XR hip LT min 2V Accession Number(s): [id number] cc: Marlin Almodovar APRN; Ernestine, Benita PLUSH FINISHER~ HISTORY: FALL, LAT HIP PAIN/BRUISING COMPARISON: None TECHNIQUE: 2 views of the left hip FINDINGS: No acute fracture or dislocation is identified. Superior lateral sclerosis of the femoral acetabular joint space is present consistent with osteoarthritis. Specimen Fecal stasis within the colon. Air within the rectum. Normal mineralization. IMPRESSION: Degenerative disease without acute fracture or dislocation Reviewed, dictated and finalized at location A. SCAPING CREW LEADER Please be advised this is a medical document. It is intended for [id number] communication. It is written in medical language and may contain unfamiliar abbreviations or verbiage. Medical documents are intended to carry relevant information, facts as evident, and the clinical opinion of the practitioner at the time of the encounter. This report may have been done utilizing a voice recognition system. Attempts have been made to correct errors. However, there may be uncorrected grammatical, spelling, and recognition errors present. The file time of this note does not necessarily represent the time of service. Dictated By: Valerie Pinto MD 10/06/24 0927 Signed By: <Electronically signed by Valerie Pinto MD in OV> [place] [address] XRay Report Signed Patient: Gabe Mathews : 1990 MR#: [id number] Age: 34 Acct:[id number] Loc: [facility] ADM Date: 10/06/24Attending Dr: Ordering Physician: Marlin Almodovar APRN Date of Service: 10/06/24 Procedure(s): XR knee RT min 4V Accession Number(s): [id number] cc: Marlin Almodovar APRN; Ernestine, Benita PLUSH FINISHER~ HISTORY: FALL, ANT PAIN COMPARISON: None TECHNIQUE: 4 views of the right knee were performed FINDINGS: No acute or subacute fracture, erosion, lytic or sclerotic lesion. Medial tibiofemoral joint space narrowing is identified. Small suprapatellar joint effusion is identified. The infrapatellar joint space is clear. IMPRESSION: Degenerative disease and a small suprapatellar joint effusion without acute fracture. Reviewed, dictated and finalized at location A. SCAPING CREW LEADER Please be advised this is a medical document. It is intended for ayoe-pq-coyb communication. It is written in medical language and may contain unfamiliar abbreviations or verbiage. Medical documents are intended to carry relevant information, facts as evident, and the clinical opinion of the practitioner at the time of the encounter. This report may have been done utilizing a voice recognition system. Attempts have been made to correct errors. However, there may be uncorrected grammatical, spelling, and recognition errors present. The file time of this note does not necessarily represent the time of service. Dictated By: Valerie Pinto MD 10/06/24 0933 Signed By: <Electronically signed by Valerie Pinto MD in OV> Critical Care Time Critical Care Time Critical Care Time: No Discharge Plan Discharge Clinical Impression: Effusion of knee joint right Contusion of knee, right Qualifiers: Encounter type: initial encounter Qualified Code(s): S80.01XA - Contusion of right knee, initial encounter Contusion of hip, left Qualifiers: Encounter type: initial encounter Qualified Code(s): S70.02XA - Contusion of left hip, initial encounter Patient Disposition: Home, Self-Care Condition: Stable Instructions: Contusion in Adults (ED), Swollen Knee Joint (ED) Additional Instructions: Elastic wrap or orthopedic splint as directed for comfort for the next 5-7 days Tylenol for lesser pain Ibuprofen regularly for the next 2-3 days for the inflammation Follow-up with orthopedic surgeon if any increased symptoms or further complaints Follow-up with PCP if further problems or concerns Ice to the area 20-30 minutes 4-6 times a day Elevate above heart If your symptoms persist, change or worsen significantly before you can contact your personal physician then please, without delay, go to the emergency department for further evaluation. Follow-up with PCP in 7-10 days or sooner if needed Patient Language: Welsh Prescriptions: No Action ibuprofen 600 mg tablet 600 mg PO Q6H PRN (Reason: pain) Qty: 30 0RF methylprednisolone [Medrol (Eloy)] 4 mg tablets,dose pack See Rx Instructions PO .COMPLEX Qty: 21 0RF Rx Instructions: orally per package directions Follow-up/Referrals: Ernestine,KATJA Joy [Primary Care Provider] - Stand Alone Forms: Work/School Release IP Time of Disposition: 10:09 Quality Tucker Coma Scale Eyes: Open Verbal: Oriented and Alert Motor: Follows Commands Danielle Coma Total Score: 15
== END 2024-10-06 10:16 | disposition home or self-care (01) ==
PROVIDERS: Emergency Provider Registered Nurse; PCP Nurse Practitioner Family
DX: M25.461 Effusion, right knee (principal); S80.01XA Contusion of right knee, initial encounter; S70.02XA Contusion of left hip, initial encounter; W19.XXXA Unspecified fall, initial encounter
CPT/HCPCS: 73502; 73564; 99214; G0463